=== PATIENT | male | born 2000 | race Caucasian/White ===

== ENCOUNTER 2019-10-27 07:40 | Emergency (ER) | payer SELFPAY ==
[~2019-10-27] VITALS: Ht 180.3 cm; Wt 61.2 kg
[~2019-10-27 07:40] MED LIST: MOTRIN CHI100 MG/51 PO
[2019-10-27 08:02] VITALS: BP 130/66
[2019-10-27] MEDS ORDERED: CLARITIN10 MG PO (08:30)
== END 2019-10-27 08:38 | disposition home or self-care (01) ==
LOC: ED 07:40
DX: L50.9 Urticaria, unspecified (principal)

== ENCOUNTER 2019-11-04 19:20 | Emergency (ER) | payer SELFPAY ==
[~2019-11-04] VITALS: Ht 177.8 cm; Wt 61.2 kg
[~2019-11-04 19:20] MED LIST changes: +CLARITIN10 MG PO
[2019-11-04 19:55] VITALS: BP 98/58
== END 2019-11-04 20:23 | disposition home or self-care (01) ==
LOC: ED 19:20
DX: Z02.79 Encounter for issue of other medical certificate (principal); Z79.899 Other long term (current) drug therapy

== ENCOUNTER → 2020-10-01 | Outpatient (CLI) | payer SELFPAY | END | disposition home or self-care (01) | LOC: COVID19 08:47 | PROVIDERS: ATTEND Internal Medicine | DX: Z11.52 Encounter for screening for COVID-19 (principal) ==